=== PATIENT | female | born 1975 | race Caucasian/White ===

== ENCOUNTER 2023-06-13 08:26 | Emergency (ER) | payer OTHER ==
[2023-06-13 08:37] VITALS: BP 119/82; PULSE 90; RESP 16; TEMP 98; BMI 24.9
[2023-06-13] MEDS ORDERED: IBUPROFEN 600 MG TABLET (FP) PO ONE (08:48)
[2023-06-13] MEDS ORDERED: IBUPROFEN 400 MG TABLET (FP) PO ONE (08:56)
== END 2023-06-13 09:41 | disposition home or self-care (01) ==
LOC: FER 08:26
DX: M79.644 Pain in right finger(s) (principal)
CPT/HCPCS: 73130-TC-RT-FY; 99283-25